=== PATIENT | male | born 1995 ===

== ENCOUNTER 2021-04-30 22:33 | Emergency (ER) | payer SELFPAY ==
[2021-04-30 22:44] VITALS: BP 124/75
--- NOTE | 2021-04-30 23:53 | ED General ---
General Chief Complaint: General Problems/Pain Stated Complaint: GEN WEAKNESS | ALTERED MENTAL STAT | INSECT BITE Nursing Triage Note: Pt states that he started having generalized weakness a couple of days ago. Pt says he feels like he has an altered mental status intermittently as well. Pt is alert and and answering questions appropriately on arrival Nursing Sepsis Screen: No Definite Risk Source of Information: RN Notes Reviewed Exam Limitations: Other (pt left prior to me going to see the patient) History of Present Illness Date Seen by Provider: Apr 30, 2021 Time Seen by Provider: 23:39 Initial Comments 25 yo male presenting with complaints to the nurse of general weakness and intermittently being confused. Unfortunately I was working with other patients so he had a wait time before I was free to see him. I went to his room at 2339 and he was not in the room. He had not told any of the staff that he was leaving but when I checked with registration she said she had stepped away from the desk for a moment and heard the door open. When she came back in the office she saw someone on the camera walking to their vehicle but did not know who it was. Allergies and Home Medications Allergies Coded Allergies: No Known Drug Allergies (Unverified , 04/30/21) Patient Home Medication List Home Medication List Reviewed: Yes Review of Systems Review of Systems Constitutional: weakness (generalized) Unable to obtain ROS as the patient left without being seen. He was not in the room when I went to see him at 2339. Past Ddmslrt-Sfhrzj-Hbgduf Hx Past Med/Social Hx: Reviewed Nursing Past Med/Soc Hx Patient Social History Alcohol Use: Occasionally Uses Smoking Status: Current Everyday Smoker Type Used: Cigarettes Recent Infectious Disease Expo: No Recent Hopitalizations: No Past Medical History Surgeries: Yes Orthopedic Respiratory: No Cardiac: No Neurological: No Genitourinary: No Gastrointestinal: No Musculoskeletal: No Endocrine: No HEENT: No Cancer: No Psychosocial: No Integumentary: No Blood Disorders: No Physical Exam Vital Signs Vital Signs - First Documented 04/30/21 22:44 Temp 36.7 Pulse 82 Resp 18 B/P (MAP) 124/75 (91) Pulse Ox 98 O2 Delivery Room Air Capillary Refill : Less Than 3 Seconds Height, Weight, BMI Height: '" Weight: lbs. oz. kg; BMI Method: General Appearance: Other (Unable to examine pt as he left prior to seeing physician) Comments Unable to perform exam since the patient left without being seen by provider and was not in the room when I went to see him at 2339. Progress/Results/Core Measures Suspected Sepsis Recent Fever Within 48 Hours: No Infection Criteria Present: None New/Unexplained Altered Menta: No Sepsis Screen: No Definite Risk SIRS Temperature: Pulse: 82 Respiratory Rate: 18 Blood Pressure 124 /75 Mean: 91 Results/Orders Vital Signs/I&O 04/30/21 22:44 Temp 36.7 Pulse 82 Resp 18 B/P (MAP) 124/75 (91) Pulse Ox 98 O2 Delivery Room Air Capillary Refill : Less Than 3 Seconds Blood Pressure Mean: 91 Progress Note : Progress Note Patient was not in room at 2339 when I went to see him so unable to perform ROS or physical exam. I reviewed the nurses notes. Departure Impression Primary Impression: Patient left without being seen Disposition: 07 AGAINST MEDICAL ADVICE Condition: Against Medical Advice Departure-Patient Inst. Referrals: NO,LOCAL PHYSICIAN (PCP/Family) Primary Care Physician MANUEL BOWEN MD Apr 30, 2021 23:53
== END 2021-04-30 23:50 | disposition left against medical advice (07) ==
LOC: ER FS 22:37
DX: R53.1 Weakness (principal); R41.0 Disorientation, unspecified; F17.210 Nicotine dependence, cigarettes, uncomplicated